=== PATIENT | female | born 1970 ===

== ENCOUNTER 2019-04-06 07:30 | Inpatient (IN) | payer OTHER ==
[~2019-04-06] VITALS: Ht 165.1 cm; Wt 77.1 kg
== END 2019-04-12 09:43 | disposition home or self-care (01) | DRG 743 ==
LOC: OB/GYN 04-10 05:08 → O/R 04-10 05:08 → OB/GYN 04-10 14:06
PROVIDERS: ADMIT Obstetrics & Gynecology
PROC: 0UT70ZZ Resection of Bilateral Fallopian Tubes, Open Approach (ICD-10-PCS; 2019-04-10)
PROC: 0UT90ZZ Resection of Uterus, Open Approach (ICD-10-PCS; principal; 2019-04-10 09:45)
DX: D25.1 Intramural leiomyoma of uterus (principal); D25.0 Submucous leiomyoma of uterus; N93.8 Other specified abnormal uterine and vaginal bleeding; N80.2 Endometriosis of fallopian tube; N71.1 Chronic inflammatory disease of uterus